=== PATIENT | female | born 1980 | race Two or more races ===

== ENCOUNTER 2021-11-11 12:36 | Outpatient (CLI) | payer OTHER | END 2021-11-11 12:53 | disposition home or self-care (01) | LOC: SONOGRAMA 12:36 | DX: E03.9 Hypothyroidism, unspecified (principal) ==

== ENCOUNTER 2021-11-21 08:56 | Outpatient (CLI) | payer OTHER | END 2021-11-21 09:05 | disposition home or self-care (01) | LOC: LAB 08:56 | DX: E03.9 Hypothyroidism, unspecified (principal); E78.2 Mixed hyperlipidemia; R73.01 Impaired fasting glucose ==

== ENCOUNTER 2022-08-07 11:17 | Outpatient (CLI) | payer OTHER | END 2022-08-07 11:21 | disposition home or self-care (01) | LOC: LAB 11:17 | DX: L93.0 Discoid lupus erythematosus (principal); E55.9 Vitamin D deficiency, unspecified; M05.9 Rheumatoid arthritis with rheumatoid factor, unspecified; E03.9 Hypothyroidism, unspecified ==

== ENCOUNTER → 2022-09-25 08:23 | Outpatient (CLI) | payer OTHER | END | disposition home or self-care (01) | LOC: LAB 08:23 | DX: R76.0 Raised antibody titer (principal) ==

== ENCOUNTER 2024-01-07 09:10 | Outpatient (CLI) | payer OTHER ==
[2024-01-07 10:51] LABS: HEMATOCRIT 40.1 % (36.0-45.00); HEMOGLOBIN 13.8 g/dL (12.0-15.00); MEAN CELL VOLUME 90.1 fL (80.00-100.00); MEAN CORPUSCULAR HEMOGLOBIN 31.1 pg (27.00-32.0); MEAN CORPUSCULAR HGB CONC 34.5 g/dl (32.0-36.0); PLATELET COUNT 346 K/uL (150-450); RED BLOOD COUNT 4.45 M/uL (4.00-6.00); RED CELL DISTRIBUTION WIDTH 13.7 % (11.5-14.5)
[2024-01-07 10:52] LABS: PH,URINE 7.5 (5.0-8.0); URINE APPEARANCE Clear; URINE BILIRRUBIN Negative (NEGATIVE); URINE BLOOD Large; URINE COLOR Yellow; URINE GLUCOSE Negative (NEGATIVE); URINE KETONE Negative (NEGATIVE); URINE LEUKOCYTE Small; URINE NITRATE Positive; URINE PROTEIN Negative (NEGATIVE); URINE UROBILINOGEN 0.2 E.U./dl
[2024-01-07 10:56] LABS: URINE EPITHELIAL CELLS 11.4 uL (0.0-38.8); URINE RBC 2.7 uL (0.0-20.8); URINE WBC 132.3 uL (0.0-23.2)
[2024-01-07 11:16] LABS: URINE BACTERIA > 9821.5 uL (0.0-1933)
[2024-01-07 11:34] LABS: ALBUMIN 3.5 gm/dL (3.4-5.0); BILIRUBIN TOTAL 0.45 mg/dL (0.3-1.2); CALCIUM 8.8 mg/dL (8.5-10.1); CHOL HDL RATIO 3.2 (0-5.0); CREATININE SERUM 0.8 mg/dL (0.55-1.02); GFR 78.28; GLOBULINA 3.4 G/DL (2.4-3.5); POTASSIUM 4.59 mEq/L (3.5-5.1); T4 FREE 1.37 NG/ML (0.76-1.46); TOTAL PROTEIN 6.9 gm/dL (6.4-8.2); TSH 3.58 uIU/mL (0.358-3.74)
== END 2024-01-07 09:11 | disposition home or self-care (01) ==
LOC: LAB 09:10
DX: E03.9 Hypothyroidism, unspecified (principal)

== ENCOUNTER 2024-02-28 17:00 | Emergency (ER) | payer OTHER ==
[~2024-02-28] VITALS: Ht 162.6 cm; Wt 71.7 kg
[2024-02-28] MEDS ORDERED: SYNTHROID150 MCG PO (17:15)
[2024-02-28] MEDS ORDERED: ORPHENADRINE CITRATE 30 MG/ML AMPUL IM STA (21:48)
[2024-02-28] MEDS ORDERED: ZANAFLEX4 M1 PO (23:59)
[2024-02-28] MEDS ORDERED: DICLOFENAC POTA50 MG PO (23:59)
== END 2024-02-29 00:35 | disposition home or self-care (01) ==
LOC: ER 17:02
DX: G44.209 Tension-type headache, unspecified, not intractable (principal); E03.8 Other specified hypothyroidism